=== PATIENT | male | born 1990 | race African-American/Black ===

== ENCOUNTER 2017-01-28 10:34 | Emergency (ER) | payer SELFPAY ==
[~2017-01-28] VITALS: Ht 180.3 cm; Wt 131.5 kg
[~2017-01-28 10:34] MED LIST: HYDR-2762 PO; PANT40GR PO
[2017-01-28] MEDS ORDERED: ONDANSETRON ODT 4 MG TAB.RAPDIS. PO ONE (11:00)
[2017-01-28] MEDS ORDERED: LIDO:MAALOX:DONNATAL 1:1:1 15 ML SINGLE DOSE SWSW ONE (11:00)
--- NOTE | 2017-01-28 11:07 | PHYS DOC ---
Past Medical History Past Medical History: Other Additional Past Medical Histor: Stress Past Surgical History: Other Additional Past Surgical Histo: Right Leg Alcohol Use: Occasionally Drug Use: Cocaine Adult General Chief Complaint Chief Complaint: FLU SYMPTOM HPI HPI Patient is a 26 year old medical presents with multiple complaints. Patient is complaining of a sore throat, productive cough, chronic left upper quadrant pain from chronic stomach issues with nausea and vomiting patient states some of these symptoms are chronic while others have been going on for 5 days. Patient denies any hematemesis or melena. He states he supposed to take Protonix every day for chronic stomach ulcers your. He states he took one tablet today but has missed multiple days. He states he recently came from care home and has not had time to see a GI doctor. Review of Systems Review of Systems Constitutional: Denies fever or chills [] Eyes: Denies change in visual acuity, redness, or eye pain [] HENT: Reports sore throat. Denies nasal congestion or Respiratory: Reports a cough denies shortness of breath [] Cardiovascular: No additional information not addressed in HPI [] GI: chronic LUQ abdominal pain, nausea, vomiting, denies bloody stools or diarrhea [] : Denies dysuria or hematuria [] Musculoskeletal: Denies back pain or joint pain [] Integument: Denies rash or skin lesions [] Neurologic: Denies headache, focal weakness or sensory changes [] All other systems were reviewed and found to be within normal limits, except as documented in this note. Current Medications Current Medications Current Medications Medications (Trade) Dose Ordered Sig/Nahed Start Time Stop Time Status Last Admin Dose Admin Info (Do NOT chart on this entry -- for MONITORING) 1 each PRN DAILY PRN 01/28/17 12:30 01/28/17 14:34 DC Iohexol (Omnipaque 300 Mg/ml) 75 ml 1X ONCE 01/28/17 12:30 01/28/17 12:31 DC 01/28/17 13:13 75 ML Multi-Ingredient Mouthwash/Gargle (Gi Cocktail Single Dose) 15 ml 1X ONCE 01/28/17 11:00 01/28/17 11:01 DC 01/28/17 11:17 15 ML Ondansetron HCl (Zofran Odt) 4 mg 1X ONCE 01/28/17 11:00 01/28/17 11:01 DC 01/28/17 11:17 4 MG Allergies Allergies Allergies Coded Allergies Type Severity Reaction Last Updated Verified No Known Drug Allergies 02/12/13 No Physical Exam Physical Exam Constitutional: Well developed, well nourished, no acute distress, non-toxic appearance. [] HENT: Normocephalic, atraumatic, bilateral external ears normal, oropharynx moist, no oral exudates, nose normal. [] Eyes: PERRLA, EOMI, conjunctiva normal, no discharge. [] Neck: Normal range of motion, no tenderness, supple, no stridor. [] Cardiovascular:Heart rate regular rhythm, no murmur [] Lungs & Thorax: Bilateral breath sounds clear to auscultation [] Abdomen: Bowel sounds normal, soft, no tenderness, no masses, no pulsatile masses. [] Skin: Warm, dry, no erythema, no rash. [] Back: No tenderness, no CVA tenderness. [] Extremities: No tenderness, no cyanosis, no clubbing, ROM intact, no edema. [] Neurologic: Alert and oriented X 3, normal motor function, normal sensory function, no focal deficits noted. [] Psychologic: Affect normal, judgement normal, mood normal. [] Current Patient Data Vital Signs Vital Signs Date Time Temp Pulse Resp B/P (MAP) Pulse Ox O2 Delivery O2 Flow Rate FiO2 01/28/17 13:52 69 142/66 (91) 98 Room Air 01/28/17 10:36 97.7 18 97.7 Lab Values Laboratory Tests Test 01/28/17 10:59 01/28/17 12:40 01/28/17 12:50 Group A Streptococcus Rapid Negative (NEGATIVE) White Blood Count 6.5 x10^3/uL (4.0-11.0) Red Blood Count 4.85 x10^6/uL (4.30-5.70) Hemoglobin 14.9 g/dL (13.0-17.5) Hematocrit 44.3 % (39.0-53.0) Mean Corpuscular Volume 91 fL (79-100) Mean Corpuscular Hemoglobin 31 pg (25-35) Mean Corpuscular Hemoglobin Concent 34 g/dL (31-37) Red Cell Distribution Width 13.1 % (11.5-14.5) Platelet Count 303 x10^3/uL (140-400) Neutrophils (%) (Auto) 45 % (31-73) Lymphocytes (%) (Auto) 41 % (24-48) Monocytes (%) (Auto) 7 % (0-9) Eosinophils (%) (Auto) 7 % (0-3) H Basophils (%) (Auto) 1 % (0-3) Neutrophils # (Auto) 2.9 x10^3uL (1.8-7.7) Lymphocytes # (Auto) 2.7 x10^3/uL (1.0-4.8) Monocytes # (Auto) 0.5 x10^3/uL (0.0-1.1) Eosinophils # (Auto) 0.4 x10^3/uL (0.0-0.7) Basophils # (Auto) 0.0 x10^3/uL (0.0-0.2) Prothrombin Time 14.2 SEC (11.7-14.0) H Prothrombin Time INR 1.2 (0.8-1.1) H PTT 29 SEC (24-38) POC Hemoglobin 15.0 g/dL (14-18) POC Hematocrit 44 % (37-52) POC Sodium 140 mmol/L (135-145) POC Potassium 4.0 mmol/L (3.5-5.0) POC Chloride 104 mmol/L (98-110) POC Total CO2 26 mmol/L (23-32) Anion Gap 14 mmol/L (6-14) POC Blood Urea Nitrogen 10 mg/dL (8-26) POC Creatinine 0.8 mg/dL (0.5-1.4) Glucose Level 86 mg/dL (70-99) POC Ionized Calcium (Rodger) 1.16 mmol/L (1.13-1.32) Laboratory Tests 01/28/17 12:40 Laboratory Tests 01/28/17 12:50 EKG EKG [] Radiology/Procedures Radiology/Procedures []PROCEDURE: CHEST PA & LATERAL 2 views of the Chest 01/28/2017 12:58 PM Indication: cough Comparison: Chest radiograph, December 16, 2012. Findings: Fullness in the subcarinal region, and in the central mediastinum the lateral view. Findings could represent a enlarged lymph node. Whether this contains calcification is uncertain radiographically. No pneumothorax or pleural effusion is seen. No other focal infiltrate is identified. Heart size is normal. Bony thorax is intact. Impression: Fullness in the central mediastinum. Adenopathy or mass cannot excluded. Contrast-enhanced CT of the chest recommended. DICTATED and SIGNED BY: ISMAEL MEEKS MD DATE: 01/28/17 1202 CC: SETH HORVATH APRN; NO PCP ~ CT ANGIOGRAPHY CHEST Clinical Indication: cough and fullness in mediastinum on cxr flulike symptoms Comparison: None. TECHNIQUE: Helical CT imaging of the chest is performed after 75 cc Omnipaque 300 IV contrast using antrum protocol. 3-D MIP reconstructions performed. Findings: Contrast opacification of the pulmonary arteries is not adequate to evaluate for pulmonary embolus. There is no thoracic aortic dissection. The thyroid is symmetric. There is bilateral gynecomastia. No mediastinal or hilar adenopathy. There are subcentimeter hilar lymph nodes. There are calcified left hilar lymph nodes. There is a 2.3 cm calcified subcarinal lymph node. The great vessels are normal in caliber. Cardiac size normal, no pericardial effusion. No pleural abnormality. The central airways are patent. Mild discoid atelectasis in the lingula. Calcified granuloma in the lateral left lower lobe. Mild groundglass opacities in the bilateral lower lobes may be due to small airways disease or atelectasis. Possible fatty infiltration of the liver. No acute bone abnormality. IMPRESSION: 1. No thoracic aortic dissection. 2. Mild groundglass opacities in the bilateral lower lobes may be due to small airways disease or atelectasis. 3. Question fatty infiltration of liver. Electronically signed by: Markell Walter MD (01/28/2017 1:31 PM) [id number] DICTATED and SIGNED BY: MARKELL WALTER MD DATE: 01/28/17 1325 CC: SETH HORVATH APRN; NO PCP ~ Course & Med Decision Making Course & Med Decision Making Pertinent Labs and Imaging studies reviewed. (See chart for details) This is a 26-year-old male patient presenting to the ED today with multiple complaints including a productive cough, chronic left upper quadrant abdominal pain with nausea vomiting from stomach ulcers, sore throat. Negative rapid strep. Chest x-ray interpreted by radiologist was noted for- Fullness in the central mediastinum. Adenopathy or mass cannot excluded. Contrast-enhanced CT of the chest recommended. Labs as well as CT of the chest were ordered. Labs are negative for any acute findings. CTA chest results, no thoracic aortic dissection, Mild ground glass opacities in the bilateral lower lobes may be due to small airways disease or atelectasis questionable fatty infiltration of liver. Patient was discharged with albuterol inhaler, prednisone for 5 days, Tessalon Perles and azithromycin. Patient was asked to also follow-up with a human resource intern provided. Patient was asking for pain medicine for home use. From his previous visit this patient was noted for altering narcotic prescriptions. Reminded patient we will not give him any narcotic prescriptions from our ED for pain he can take Tylenol /Motrin. Dragon Disclaimer Dragon Disclaimer This electronic medical record was generated, in whole or in part, using a voice recognition dictation system. Departure Departure Impression: Primary Impression: Bronchitis Additional Impressions: Upper respiratory disease Abdominal pain Disposition: HOME, SELF-CARE Condition: STABLE Referrals: NON,STAFF (PCP) follow up with your doctor in one week Patient Instructions: Abdominal Pain, Acute Bronchitis, Upper Respiratory Infection, Adult Additional Instructions: You were seen with Bronchitis, upper respiratory infection, chronic abdominal pain from stomach ulcers, viral pharyngitis. Please complete your antibiotics and take the rest of the medications as ordered. Follow-up with your own doctor in 1-[address] shows you have small airway disease, please follow up with the pulmonary doctor provided as soon as you can Scripts Azithromycin (ZITHROMAX) 250 Mg Tablet 1 PKG PO UD, #1 PKG Prov: SETH HORVATH APRN 01/28/17 Benzonatate (TESSALON PERLE) 100 Mg Capsule 1 CAP PO TID, #30 CAP Prov: SETH HORVATH APRN 01/28/17 Albuterol Sulfate (Proair Respiclick) 90 Mcg Aer.pow.ba 1 PUFF IH PRN Q6HRS Y for SHORTNESS OF BREATH, #1 INHALER Prov: SETH HORVATH APRN 01/28/17 Prednisone (PREDNISONE) 50 Mg Tablet 1 TAB PO DAILY, #5 TAB Prov: SETH HORVATH APRN 01/28/17 Problem Qualifiers Additional Impressions: Abdominal pain Abdominal location: left lower quadrant Qualified Codes: R10.32 - Left lower quadrant pain SETH HORVATH APRN Jan 28, 2017 11:07
--- NOTE | 2017-01-28 12:10 | RAD ---
2 views of the Chest 01/28/2017 12:58 PM Indication: cough Comparison: Chest radiograph, December 16, 2012. Findings: Fullness in the subcarinal region, and in the central mediastinum the lateral view. Findings could represent a enlarged lymph node. Whether this contains calcification is uncertain radiographically. No pneumothorax or pleural effusion is seen. No other focal infiltrate is identified. Heart size is normal. Bony thorax is intact. Impression: Fullness in the central mediastinum. Adenopathy or mass cannot excluded. Contrast-enhanced CT of the chest recommended.
[2017-01-28 12:16] LABS: NEGATIVE OBC STREP NEG; POSITIVE OBC STREP POS
[2017-01-28] MEDS ORDERED: IOHEXOL 300 MG/ML 100ML VIAL. IV ONE (12:30)
[2017-01-28] MEDS ORDERED: CONTRAST GIVEN MC PRN (12:30)
[2017-01-28 12:55] LABS: BASO % 1 % (0-3); EOS % 7 % (0-3); HEMATOCRIT 44.3 % (39.0-53.0); HEMOGLOBIN 14.9 g/dL (13.0-17.5); LYMPH # 2.7 x10^3/uL (1.0-4.8); LYMPH % 41 % (24-48); MEAN CORPUSCULAR HEMOGLOBIN 31 pg (25-35); MEAN CORPUSCULAR HGB CONC 34 g/dL (31-37); MEAN CORPUSCULAR VOLUME 91 fL (79-100); MONO % 7 % (0-9); NEUT % 45 % (31-73); PLATELET COUNT 303 x10^3/uL (140-400); RED BLOOD COUNT 4.85 x10^6/uL (4.30-5.70); RED CELL DISTRIBUTION WIDTH 13.1 % (11.5-14.5); WHITE BLOOD COUNT 6.5 x10^3/uL (4.0-11.0)
[2017-01-28 13:09] LABS: INR 1.2 (0.8-1.1); PROTHROMBIN TIME PATIENT 14.2 SEC (11.7-14.0)
--- NOTE | 2017-01-28 13:35 | RAD ---
PQRS Compliance Statement: One or more of the following individualized dose reduction techniques were utilized for this examination: 1. Automated exposure control 2. Adjustment of the mA and/or kV according to patient size 3. Use of iterative reconstruction technique CT ANGIOGRAPHY CHEST Clinical Indication: cough and fullness in mediastinum on cxr flulike symptoms Comparison: None. TECHNIQUE: Helical CT imaging of the chest is performed after 75 cc Omnipaque 300 IV contrast using antrum protocol. 3-D MIP reconstructions performed. Findings: Contrast opacification of the pulmonary arteries is not adequate to evaluate for pulmonary embolus. There is no thoracic aortic dissection. The thyroid is symmetric. There is bilateral gynecomastia. No mediastinal or hilar adenopathy. There are subcentimeter hilar lymph nodes. There are calcified left hilar lymph nodes. There is a 2.3 cm calcified subcarinal lymph node. The great vessels are normal in caliber. Cardiac size normal, no pericardial effusion. No pleural abnormality. The central airways are patent. Mild discoid atelectasis in the lingula. Calcified granuloma in the lateral left lower lobe. Mild groundglass opacities in the bilateral lower lobes may be due to small airways disease or atelectasis. Possible fatty infiltration of the liver. No acute bone abnormality. IMPRESSION: 1. No thoracic aortic dissection. 2. Mild groundglass opacities in the bilateral lower lobes may be due to small airways disease or atelectasis. 3. Question fatty infiltration of liver. Electronically signed by: Markell De Leon MD (01/28/2017 1:31 PM) [id number]
[2017-01-28 13:52] VITALS: BP 142/66
[2017-01-28] MEDS ORDERED: PROAIR RESPICL90 MCG IH (14:20)
[2017-01-28] MEDS ORDERED: AZIT250T PO (14:20)
[2017-01-28] MEDS ORDERED: BENZ100C PO (14:20)
[2017-01-28] MEDS ORDERED: PRED50TA PO (14:20)
== END 2017-01-28 14:29 | disposition home or self-care (01) ==
LOC: ER 10:34
DX: J40 Bronchitis, not specified as acute or chronic (principal); J39.9 Disease of upper respiratory tract, unspecified; R10.12 Left upper quadrant pain; R10.32 Left lower quadrant pain
CPT/HCPCS: 36415; 71020; 71275; 80047; 85025; 85610; 85730; 87070; 87880; 99285; Q0162; Q9967

== ENCOUNTER 2017-02-04 15:53 | Emergency (ER) | payer SELFPAY ==
[~2017-02-04] VITALS: Ht 180.3 cm; Wt 131.5 kg
[~2017-02-04 15:53] MED LIST changes: +AZIT250T PO; +BENZ100C PO; +PRED50TA PO; +PROAIR RESPICL90 MCG IH
[2017-02-04] MEDS ORDERED: NITROGLYCERIN SUBLINGUAL 0.4 MG BOTTLE OF 25. SL PRN (16:45)
[2017-02-04 16:57] LABS: BASO # 0.1 x10^3/uL (0.0-0.2); BASO % 1 % (0-3); EOS % 7 % (0-3); HEMATOCRIT 42.4 % (39.0-53.0); HEMOGLOBIN 14.5 g/dL (13.0-17.5); LYMPH % 42 % (24-48); MEAN CORPUSCULAR HEMOGLOBIN 31 pg (25-35); MEAN CORPUSCULAR HGB CONC 34 g/dL (31-37); MEAN CORPUSCULAR VOLUME 92 fL (79-100); MONO % 7 % (0-9); NEUT % 43 % (31-73); PLATELET COUNT 313 x10^3/uL (140-400); RED BLOOD COUNT 4.64 x10^6/uL (4.30-5.70); RED CELL DISTRIBUTION WIDTH 12.8 % (11.5-14.5); WHITE BLOOD COUNT 7.1 x10^3/uL (4.0-11.0)
[2017-02-04 17:05] LABS: CALCIUM 9.2 mg/dL (8.5-10.1); CREATININE 0.7 mg/dL (0.7-1.3); GFR 162.5; POTASSIUM 4.1 mmol/L (3.5-5.1)
--- NOTE | 2017-02-04 17:06 | RAD ---
Chest, 2 views, 02/04/2017: History: Chest pain Comparison is made to a study from 01/28/2017. The heart size and pulmonary vascularity are normal. No pulmonary infiltrates are seen. There is a calcified granuloma in the left lower lobe. There is no evidence of pleural fluid. IMPRESSION: No acute cardiopulmonary abnormality is detected.
[2017-02-04 17:11] LABS: ALBUMIN 3.7 g/dL (3.4-5.0); TOTAL BILIRUBIN 0.4 mg/dL (0.2-1.0); TOTAL PROTEIN 7.4 g/dL (6.4-8.2)
[2017-02-04 17:36] LABS: BARBITURATES NEG (NEG); BENZODIAZEPINES POS (NEG); CANNABINOIDS NEG (NEG); COCAINE POS (NEG); METHADONE NEG (NEG); OPIATES POS (NEG); PHENCYCLIDINE NEG (NEG)
[2017-02-04] MEDS ORDERED: CONTRAST GIVEN MC PRN (18:15)
[2017-02-04] MEDS ORDERED: IOHEXOL 300 MG/ML 100ML VIAL. IV ONE (18:30)
--- NOTE | 2017-02-04 18:50 | RAD ---
CTA Chest with contrast: Clinical History: CP AND HTN SINCE 15:15 POS FOR COCAINE, OPOID, AND BENZO USE. INJ 75ML OMNI 300 PREV SENT H/O STOMACH ULCERS GERD R/O POSSIBLE DISSECTION . Axial helical images of the chest were obtained after the administration of 75 cc of IV Omni 300 and timed appropriately for a pulmonary arterial study. Conventional axial reconstruction was performed in addition to coronal, sagittal and bilateral oblique MIP (maximum intensity projection). This study was ordered to exclude possible aortic dissection. There are no filling defects to suggest pulmonary embolism. The more peripheral subsegmental pulmonary arteries are not well opacified limiting our sensitivity for small peripheral pulmonary emboli. The lungs and pleural margins are clear. There is no mediastinal or hilar lymphadenopathy. The thoracic aorta appears normal. Bilateral gynecomastia is likely incidental. Impression: 1. No evidence of pulmonary embolism. 2. Normal thoracic aorta. PQRS Compliance Statement: One or more of the following individualized dose reduction techniques were utilized for this examination: 1. Automated exposure control 2. Adjustment of the mA and/or kV according to patient size 3. Use of iterative reconstruction technique Electronically signed by: Delmer Bowman III, MD (02/04/2017 6:47 PM) [facility]
[2017-02-04] MEDS ORDERED: hydroCHLOROthiazide 12.5 MG CAPSULE PO ONE (19:45)
[2017-02-04] MEDS ORDERED: NAPROXEN 500 MG TABLET PO ONE (19:45)
[2017-02-04 19:56] VITALS: BP 140/100
[2017-02-04] MEDS ORDERED: HYDR12.53 PO (20:20)
--- NOTE | 2017-02-04 21:12 | ED.ADGEN ---
Past Medical History Past Medical History: Bronchitis, GERD, Hypertension, Pneumonia Additional Past Medical Histor: LUNG DISEASE; Stress, STOMACH ULCERS, COLITIS. Past Surgical History: Other Additional Past Surgical Histo: R LEG FX REPAIR Alcohol Use: None Drug Use: Cocaine Adult General Chief Complaint Chief Complaint: CHEST PAIN HPI HPI Patient is a 26 year old man, history of GERD, hypertension, who states he's been out of his medications for the past month after being incarcerated, and does not currently have a primary care provider, who presents emergency Department with complaint of left chest pain. Patient states he first noted the pain several hours ago, he states that he was using cocaine this morning, but "just a little bit", denies any other ingestions or exposures. Patient's heart rate is in the 70s and 80s, blood pressure noted to be 150s over 80s, he denies any injuries or other ingestions, states the pain begins in the anterior portion of his left chest, does radiate to his shoulder into his back and also slightly to the neck. He denies any similar symptoms previously, any injuries, any coughing, states he is very mild shortness of breath, denies a inciting factors. Has been eating and drinking normally, denies any swelling extremities , history of DVT or PE, no family history of heart disease or issues in young people. Review of Systems Review of Systems Constitutional: Denies fever or chills. [] Eyes: Denies change in visual acuity. [] HENT: Denies nasal congestion or sore throat. [] Respiratory: Denies cough or shortness of breath. [] Cardiovascular: Patient complaining of left-sided chest pain radiating into the back. GI: Denies abdominal pain, nausea, vomiting, bloody stools or diarrhea. [] : Denies dysuria. [] Musculoskeletal: Denies back pain or joint pain. [] Integument: Denies rash. [] Neurologic: Denies headache, focal weakness or sensory changes. [] Endocrine: Denies polyuria or polydipsia. [] Lymphatic: Denies swollen glands. [] Psychiatric: Denies depression or anxiety. [] Current Medications Current Medications Current Medications Medications (Trade) Dose Ordered Sig/Nahed Start Time Stop Time Status Last Admin Dose Admin Hydrochlorothiazide (Microzide) 12.5 mg 1X ONCE 02/04/17 19:45 02/04/17 19:46 DC 02/04/17 19:38 12.5 MG Info (Do NOT chart on this entry -- for MONITORING) 1 each PRN DAILY PRN 02/04/17 18:15 02/04/17 20:27 DC Iohexol (Omnipaque 300 Mg/ml) 75 ml 1X ONCE 02/04/17 18:30 02/04/17 18:31 DC 02/04/17 18:18 75 ML Lorazepam (Ativan) 0.5 mg 1X ONCE 02/04/17 16:45 02/04/17 16:46 DC Naproxen (Naprosyn) 500 mg 1X ONCE 02/04/17 19:45 02/04/17 19:46 DC 02/04/17 19:39 500 MG Nitroglycerin (Nitrostat) 0.4 mg PRN Q5MIN PRN 02/04/17 16:45 02/04/17 20:27 DC 02/04/17 17:54 0.4 MG Allergies Allergies Allergies Coded Allergies Type Severity Reaction Last Updated Verified No Known Drug Allergies 02/12/13 No Physical Exam Physical Exam Constitutional: Well developed, well nourished, no acute distress, non-toxic appearance. [] HENT: Normocephalic, atraumatic, bilateral external ears normal, oropharynx moist, no oral exudates, nose normal. [] Eyes: PERRLA, EOMI, conjunctiva normal, no discharge. [] Neck: Normal range of motion, no tenderness, supple, no stridor. [] Cardiovascular:Heart rate regular rhythm, no murmur him S1, S2, no rubs or gallops. Patient with left anterior chest wall pain, mild tenderness palpation, reproducible. No crepitus. Lungs & Thorax: Bilateral breath sounds clear to auscultation, no wheezing, rhonchi, rales. No posterior chest wall tenderness. [] Abdomen: Bowel sounds normal, soft, no tenderness, no masses, no pulsatile masses. [] Skin: Warm, dry, no erythema, no rash. [] Back: No tenderness, no CVA tenderness. [] Extremities: No tenderness, no cyanosis, no clubbing, ROM intact, no edema. Negative Homans sign. [] Neurologic: Alert and oriented X 3, normal motor function, normal sensory function, no focal deficits noted. [] Psychologic: Affect normal, judgement normal, mood normal. [] Current Patient Data Vital Signs Vital Signs Date Time Temp Pulse Resp B/P (MAP) Pulse Ox O2 Delivery O2 Flow Rate FiO2 02/04/17 19:56 91 15 140/100 (113) 98 Room Air 02/04/17 15:57 98.0 98.0 Lab Values Laboratory Tests Test 02/04/17 16:45 02/04/17 17:15 02/04/17 19:25 White Blood Count 7.1 x10^3/uL (4.0-11.0) Red Blood Count 4.64 x10^6/uL (4.30-5.70) Hemoglobin 14.5 g/dL (13.0-17.5) Hematocrit 42.4 % (39.0-53.0) Mean Corpuscular Volume 92 fL (79-100) Mean Corpuscular Hemoglobin 31 pg (25-35) Mean Corpuscular Hemoglobin Concent 34 g/dL (31-37) Red Cell Distribution Width 12.8 % (11.5-14.5) Platelet Count 313 x10^3/uL (140-400) Neutrophils (%) (Auto) 43 % (31-73) Lymphocytes (%) (Auto) 42 % (24-48) Monocytes (%) (Auto) 7 % (0-9) Eosinophils (%) (Auto) 7 % (0-3) H Basophils (%) (Auto) 1 % (0-3) Neutrophils # (Auto) 3.0 x10^3uL (1.8-7.7) Lymphocytes # (Auto) 3.0 x10^3/uL (1.0-4.8) Monocytes # (Auto) 0.5 x10^3/uL (0.0-1.1) Eosinophils # (Auto) 0.5 x10^3/uL (0.0-0.7) Basophils # (Auto) 0.1 x10^3/uL (0.0-0.2) Sodium Level 139 mmol/L (136-145) Potassium Level 4.1 mmol/L (3.5-5.1) Chloride Level 102 mmol/L (98-107) Carbon Dioxide Level 30 mmol/L (21-32) Anion Gap 7 (6-14) Blood Urea Nitrogen 10 mg/dL (8-26) Creatinine 0.7 mg/dL (0.7-1.3) Estimated GFR (Cockcroft-Gault) 162.5 BUN/Creatinine Ratio 14 (6-20) Glucose Level 94 mg/dL (70-99) Calcium Level 9.2 mg/dL (8.5-10.1) Total Bilirubin 0.4 mg/dL (0.2-1.0) Aspartate Amino Transferase (AST) 28 U/L (15-37) Alanine Aminotransferase (ALT) 35 U/L (16-63) Alkaline Phosphatase 73 U/L (46-116) Troponin I Quantitative < 0.017 ng/mL (0.000-0.055) < 0.017 ng/mL (0.000-0.055) CK-Oyz-K-Type Natriuretic Peptide 6 pg/mL (0-124) Total Protein 7.4 g/dL (6.4-8.2) Albumin 3.7 g/dL (3.4-5.0) Albumin/Globulin Ratio 1.0 (1.0-1.7) Lipase 62 U/L (73-393) L Urine Opiates Screen Pos (NEG) Urine Methadone Screen Neg (NEG) Urine Barbiturates Neg (NEG) Urine Phencyclidine Screen Neg (NEG) Urine Amphetamine/Methamphetamine Neg (NEG) Urine Benzodiazepines Screen Pos (NEG) Urine Cocaine Screen Pos (NEG) Urine Cannabinoids Screen Neg (NEG) Urine Ethyl Alcohol Neg (NEG) Laboratory Tests 02/04/17 16:45 Laboratory Tests 02/04/17 16:45 EKG EKG EC: Sinus rhythm, heart rate 88 bpm, equivocal axis, QTC of 422, CA 158, QRS of 104, patient with contour normality is noted in the anterior lateral leads, with incomplete right bundle-branch block noted, abnormal ECG, does not meet STEMI criteria. Patient states that his pain is a 3 out of 10 currently. EC: Sinus rhythm, heart rate 75 beats are minute, equivocal axis, QTC of 407, CA 152, QRS of 102, patient with incomplete right bundle-branch block again noted, abnormal ECG, does not meet STEMI criteria. As interpreted by me. Radiology/Procedures Radiology/Procedures [][facility] [address] [place] [address] IMAGING REPORT Signed PATIENT: SARITHA HOLCOMB ACCOUNT: [id number] : 1990 LOCATION: ER AGE: 26 SEX: M EXAM STATUS: REG ER ORD. PHYSICIAN: ARLINE BANKS DO REASON: CP PROCEDURE: CHEST PA & LATERAL Chest, 2 views, 02/04/2017: History: Chest pain Comparison is made to a study from 01/28/2017. The heart size and pulmonary vascularity are normal. No pulmonary infiltrates are seen. There is a calcified granuloma in the left lower lobe. There is no evidence of pleural fluid. IMPRESSION: No acute cardiopulmonary abnormality is detected. DICTATED and SIGNED BY: STEPHAN RENDON MD DATE: 02/04/17 1700 CC: ARLINE BANKS DO; NO PCP ~ Impressions: [facility] [address] [place], [place] [id number] IMAGING REPORT Signed PATIENT: SARITHA HOLCOMB ACCOUNT: [id number] : 1990 LOCATION: ER AGE: 26 SEX: M EXAM STATUS: REG ER ORD. PHYSICIAN: ARLINE BANKS DO REASON: Chest pain/HTN/cocaine use PROCEDURE: CT ANGIOGRAPHY CHEST CTA Chest with contrast: Clinical History: CP AND HTN SINCE 15:15 POS FOR COCAINE, OPOID, AND BENZO USE. INJ 75ML OMNI 300 PREV SENT H/O STOMACH ULCERS GERD R/O POSSIBLE DISSECTION . Axial helical images of the chest were obtained after the administration of 75 cc of IV Omni 300 and timed appropriately for a pulmonary arterial study. Conventional axial reconstruction was performed in addition to coronal, sagittal and bilateral oblique MIP (maximum intensity projection). This study was ordered to exclude possible aortic dissection. There are no filling defects to suggest pulmonary embolism. The more peripheral subsegmental pulmonary arteries are not well opacified limiting our sensitivity for small peripheral pulmonary emboli. The lungs and pleural margins are clear. There is no mediastinal or hilar lymphadenopathy. The thoracic aorta appears normal. Bilateral gynecomastia is likely incidental. Impression: 1. No evidence of pulmonary embolism. 2. Normal thoracic aorta. PQRS Compliance Statement: One or more of the following individualized dose reduction techniques were utilized for this examination: 1. Automated exposure control 2. Adjustment of the mA and/or kV according to patient size 3. Use of iterative reconstruction technique Electronically signed by: Marilynn Smith III, MD (02/04/2017 6:47 PM) [facility] DICTATED and SIGNED BY: MARILYNN SMITH III, MD DATE: 02/04/17 1840 CC: ARLINE BANKS DO; NO PCP ~ Course & Med Decision Making Course & Med Decision Making Pertinent Labs and Imaging studies reviewed. (See chart for details) Due to patient's complaints, and recent use of cocaine, ECG was obtained, along with chest x-ray, laboratory studies. 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 Chest x-ray was unremarkable, however based on patient's complaints of radiating pain, and recent cocaine use, CTA of the chest was ordered to evaluate for dissection. I was contacted by the quality assurance qa lab technician, informed that the patient had a CT study performed on the of this month, at that time noted for PE which was negative. As the patient has concerning symptoms, and history with recent cocaine use, after discussion will proceed with CT of the chest. Past CT was obtained did not reveal evidence of concerning findings. Patient had a 3 hour troponin and repeat ECG performed both of which not reveal any concerning findings. I did discuss all this with the patient, who continues to rest comfortably with stable vital signs. He states he is still experiencing some discomfort in his chest it is reasonable as stated, as stated there is no evidence his cardiac or pulmonary in nature which I discussed with the patient along with HEART Score 2. Patient received Hydrochlorothiazide 25 mg in the ED, as he stated that he has run out of his blood pressure medication and is noted to have blood pressures 150s over 80s in the ED, and does not currently have his previous prescriptions or a provider. I did instruct the patient to contact Dr. Aguillon or a provider from the list given to him at discharge to establish general medical care, or to follow up with the clinics provided him in the ED, he was given a 15 day prescription for her hydrochlorothiazide. Patient tolerated medication the ED without issue. He is agreeable with plan to be discharged home, to return for concerning symptoms, and to follow-up as described. Patient discharged home in stable condition with plan and precautions as above. Dragon Disclaimer Dragon Disclaimer This electronic medical record was generated, in whole or in part, using a voice recognition dictation system. Departure Impression: Primary Impression: Chest pain Disposition: HOME, SELF-CARE Condition: IMPROVED Scripts Hydrochlorothiazide (HYDROCHLOROTHIAZIDE CAPSULE ) 12.5 Mg Capsule 1 CAP PO DAILY, #15 CAP 0 Refills Prov: ARLINE BANKS DO 02/04/17 ARLINE BANKS DO Feb 04, 2017 21:12
--- NOTE | 2017-02-05 07:00 | EKG ---
[facility] [address] [place] [address] Test Date: 2017-02-04 Test Time: 19:24:32 Pat Name: SARITHA HOLCOMB Department: Room: Gender: M Date Puller: : 1990 Requested By: ARLINE BANKS Order Number: [id number] Reading MD: Jarek Stuart Measurements Intervals [place] Rate: 75 P: 0 HI: 162 QRS: 64 QRSD: 102 T: 13 QT: 362 QTc: 407 Interpretive Statements SINUS RHYTHM INCOMPLETE RIGHT BUNDLE BRANCH BLOCK NO SPECIFIC ECG ABNORMALITIES Electronically Signed On 02-09-2017 16:47:15 [employer] by Jarek Stuart
== END 2017-02-04 20:23 | disposition home or self-care (01) ==
LOC: ER 15:53
DX: R07.89 Other chest pain (principal); R06.02 Shortness of breath; K21.9 Gastro-esophageal reflux disease without esophagitis; I10 Essential (primary) hypertension; F14.10 Cocaine abuse, uncomplicated; Z87.01 Personal history of pneumonia (recurrent)
CPT/HCPCS: 36415; 71020; 71275; 80053; 80307; 83690; 83880; 84484; 85025; 93005; 99285; Q9967; G0479

== ENCOUNTER 2017-07-29 02:48 | Emergency (ER) | payer SELFPAY ==
[2017-07-29 03:31] LABS: ADD MAN DIFF? NO
[2017-07-29 03:34] LABS: BASO % 1 % (0-3); EOS # 0.3 x10^3/uL (0.0-0.7); EOS % 5 % (0-3); HEMATOCRIT 40.3 % (39.0-53.0); HEMOGLOBIN 14.3 g/dL (13.0-17.5); LYMPH % 50 % (24-48); MEAN CORPUSCULAR HEMOGLOBIN 32 pg (25-35); MEAN CORPUSCULAR HGB CONC 35 g/dL (31-37); MEAN CORPUSCULAR VOLUME 91 fL (79-100); MONO # 0.4 x10^3/uL (0.0-1.1); MONO % 7 % (0-9); NEUT # 2.2 x10^3uL (1.8-7.7); NEUT % 37 % (31-73); PLATELET COUNT 326 x10^3/uL (140-400); RED BLOOD COUNT 4.46 x10^6/uL (4.30-5.70); RED CELL DISTRIBUTION WIDTH 13.6 % (11.5-14.5); WHITE BLOOD COUNT 5.9 x10^3/uL (4.0-11.0)
[2017-07-29] MEDS: ACETAMINOPHEN 500 MG TABLET PO (03:42)
[2017-07-29 03:44] LABS: ANION GAP 7 (6-14); BLOOD UREA NITROGEN 8 mg/dL (8-26); BUN/CREATININE RATIO 9 (6-20); CALCIUM 9.1 mg/dL (8.5-10.1); CARBON DIOXIDE 30 mmol/L (21-32); CHLORIDE 103 mmol/L (98-107); CREATININE 0.9 mg/dL (0.7-1.3); GFR 120.7; GLUCOSE 99 mg/dL (70-99); POTASSIUM 3.4 mmol/L (3.5-5.1); SODIUM 140 mmol/L (136-145)
[2017-07-29 03:50] LABS: ALBUMIN 3.6 g/dL (3.4-5.0); ALBUMIN/GLOBULIN RATIO 0.8 (1.0-1.7); ALK PHOS 76 U/L (46-116); ALT (SGPT) 21 U/L (16-63); AST (SGOT) 15 U/L (15-37); TOTAL BILIRUBIN 0.2 mg/dL (0.2-1.0); TOTAL PROTEIN 7.9 g/dL (6.4-8.2)
[2017-07-29 03:52] LABS: TROPONINI < 0.017 ng/mL (0.000-0.055)
[2017-07-29] MEDS: HYDROcodone/APAP 5/325MG 1 TAB TABLET PO ×3 (04:40→04:45)
== END 2017-07-29 04:37 | disposition home or self-care (01) ==
LOC: ER 02:48
DX: R07.9 Chest pain, unspecified (principal); R20.0 Anesthesia of skin; R05 Cough; R51 Headache; K21.9 Gastro-esophageal reflux disease without esophagitis; I10 Essential (primary) hypertension; M79.89 Other specified soft tissue disorders; F14.10 Cocaine abuse, uncomplicated
CPT/HCPCS: 36415; 71045; 80053; 84484; 85025; 93005; 93971; 99285

== ENCOUNTER 2017-11-05 02:05 | Emergency (ER) | payer SELFPAY ==
[~2017-11-05] VITALS: Ht 182.9 cm; Wt 88.5 kg
[~2017-11-05 02:05] MED LIST changes: +HYDR12.53 PO
[2017-11-05 02:08] VITALS: BP 129/95
[2017-11-05] MEDS ORDERED: IV NORMAL SALINE 1000ML BAG 1,000 ML IV SCH (02:15)
[2017-11-05] MEDS ORDERED: ONDANSETRON PF 4 MG/2 ML VIAL. IV ONE (02:15)
--- NOTE | 2017-11-05 02:22 | PHYS DOC ---
Past Medical History Past Medical History: Bronchitis, GERD, Hypertension, Pneumonia Additional Past Medical Histor: LUNG DISEASE; Stress, STOMACH ULCERS, COLITIS. Past Surgical History: Other Additional Past Surgical Histo: R LEG FX REPAIR Smoking: Cigarettes, 1 Pack Per Day Alcohol Use: None Drug Use: Cocaine (reports past use), Marijuana (has not smoked in the last week) Adult General Chief Complaint Chief Complaint: SHORTNESS OF BREATH HPI HPI Patient is a 27 year-old male who presents to the emergency department for evaluation. He states he has felt poorly for the past few days, and then well at work today, he began having the sudden onset of vomiting. He reports feeling some shortness of breath as well, and is diaphoretic and tachypneic when he presents to the emergency department. He denies any definite focal pain. He appears very anxious. He denies any pleuritic chest pain. He is noted to be tachycardic. His oxygen saturation on room air is normal. There are no alleviating or exacerbating factors to his symptoms. He states he has a past history of cocaine use, but has not used in a while. He states that he last smoked marijuana about a week ago and does not smoke regularly. He does not check alcohol regularly. Review of Systems Review of Systems Constitutional: Denies fever or chills [] Eyes: Denies change in visual acuity, redness, or eye pain [] HENT: Denies nasal congestion or sore throat [] Respiratory: Denies cough. Reports shortness of breath [] Cardiovascular: Denies any chest pain or pleuritic pain.[] GI: Denies abdominal pain, bloody emesis bloody stools or diarrhea [] : Denies dysuria or hematuria [] Musculoskeletal: Denies back pain or joint pain [] Integument: Denies rash or skin lesions [] Neurologic: Denies headache, focal weakness. Does report paresthesias in his hands bilaterally. [] Endocrine: Denies polyuria or polydipsia [] All other systems were reviewed and found to be within normal limits, except as documented in this note. Current Medications Current Medications Current Medications Medications (Trade) Dose Ordered Sig/Nahed Start Time Stop Time Status Last Admin Dose Admin Lorazepam (Ativan) 1 mg 1X ONCE 11/05/17 02:30 11/05/17 03:19 DC 11/05/17 03:15 1 MG Ondansetron HCl (Zofran) 4 mg 1X ONCE 11/05/17 02:15 11/05/17 03:19 DC 11/05/17 03:15 4 MG Sodium Chloride 1,000 ml @ 1,000 mls/hr Q1H 11/05/17 02:15 11/05/17 03:19 DC 11/05/17 03:15 1,000 MLS/HR Allergies Allergies Allergies Coded Allergies Type Severity Reaction Last Updated Verified No Known Drug Allergies 02/12/13 No Physical Exam Physical Exam PHYSICAL EXAM: CONSTITUTIONAL: Well developed, well nourished HEAD: normocephalic, atraumatic EENT: PERRL, EOMI. Conjunctivae normal color, sclerae non-icteric; moist mucous membranes. NECK: Supple, non-tender; no meningismus. LUNGS: Lungs CTA, the patient is hyperventilating. Normal air movement. HEART: Regular tachycardia rhythm, no murmur CHEST: No deformity; non-tender ABDOMEN: The abdomen is soft, and non-tender, no masses or bruits. EXTREM: Normal ROM; no deformity, no calf tenderness. Normal pulses palpable in all extremities. There is no pedal edema. SKIN: No rash; the patient is diaphoretic. NEURO: Alert; normal speech and cognition; CN's grossly intact; strength grossly intact without focal deficit. BACK: No CVA TTP. PSYCHIATRIC: The patient appears very anxious, with mild agitation, although nonaggressive. Current Patient Data Vital Signs Vital Signs Date Time Temp Pulse Resp B/P (MAP) Pulse Ox O2 Delivery O2 Flow Rate FiO2 11/05/17 02:08 98.7 125 26 129/95 (106) 95 Room Air 98.7 Lab Values Laboratory Tests Test 11/05/17 02:25 11/05/17 02:30 11/05/17 03:20 O2 Saturation 91 % (92-99) L Arterial Blood pH 7.40 (7.35-7.45) Arterial Blood pCO2 at Patient Temp 42 mmHg (35-46) Arterial Blood pO2 at Patient Temp 61 mmHg (85-108) L Arterial Blood HCO3 25 mmol/L (21-28) Arterial Blood Base Excess 0 mmol/L (-3-3) FiO2 21 White Blood Count 8.3 x10^3/uL (4.0-11.0) Red Blood Count 4.81 x10^6/uL (4.30-5.70) Hemoglobin 14.9 g/dL (13.0-17.5) Hematocrit 42.9 % (39.0-53.0) Mean Corpuscular Volume 89 fL (79-100) Mean Corpuscular Hemoglobin 31 pg (25-35) Mean Corpuscular Hemoglobin Concent 35 g/dL (31-37) Red Cell Distribution Width 13.2 % (11.5-14.5) Platelet Count 309 x10^3/uL (140-400) Neutrophils (%) (Auto) 47 % (31-73) Lymphocytes (%) (Auto) 40 % (24-48) Monocytes (%) (Auto) 9 % (0-9) Eosinophils (%) (Auto) 3 % (0-3) Basophils (%) (Auto) 1 % (0-3) Neutrophils # (Auto) 3.9 x10^3uL (1.8-7.7) Lymphocytes # (Auto) 3.3 x10^3/uL (1.0-4.8) Monocytes # (Auto) 0.8 x10^3/uL (0.0-1.1) Eosinophils # (Auto) 0.3 x10^3/uL (0.0-0.7) Basophils # (Auto) 0.0 x10^3/uL (0.0-0.2) D-Dimer ([place]) < 0.27 ug/mlFEU Sodium Level 139 mmol/L (136-145) Potassium Level 3.9 mmol/L (3.5-5.1) Chloride Level 104 mmol/L (98-107) Carbon Dioxide Level 30 mmol/L (21-32) Anion Gap 5 (6-14) L Blood Urea Nitrogen 7 mg/dL (8-26) L Creatinine 1.0 mg/dL (0.7-1.3) Estimated GFR (Cockcroft-Gault) 106.9 BUN/Creatinine Ratio 7 (6-20) Glucose Level 131 mg/dL (70-99) H Calcium Level 9.9 mg/dL (8.5-10.1) Magnesium Level 1.9 mg/dL (1.8-2.4) Total Bilirubin 0.5 mg/dL (0.2-1.0) Aspartate Amino Transferase (AST) 24 U/L (15-37) Alanine Aminotransferase (ALT) 23 U/L (16-63) Alkaline Phosphatase 76 U/L (46-116) Creatine Kinase 494 U/L (39-308) H Creatine Kinase MB (Mass) 5.0 ng/mL (0.0-3.6) H Creatine Kinase MB Relative Index 1.0 % (0-4) Troponin I Quantitative < 0.017 ng/mL (0.000-0.055) YG-Qcl-A-Type Natriuretic Peptide 9 pg/mL (0-124) Total Protein 8.0 g/dL (6.4-8.2) Albumin 4.0 g/dL (3.4-5.0) Albumin/Globulin Ratio 1.0 (1.0-1.7) Lipase 55 U/L (73-393) L Urine Collection Type Unknown Urine Color Yellow Urine Clarity Clear Urine pH 8.0 Urine Specific [place] >=1.030 Urine Protein 100 mg/dL (NEG-TRACE) Urine Glucose (UA) Negative mg/dL (NEG) Urine Ketones (Stick) Negative mg/dL (NEG) Urine Blood Moderate (NEG) Urine Nitrite Negative (NEG) Urine Bilirubin Negative (NEG) Urine Urobilinogen Dipstick 1.0 mg/dL (0.2 mg/dL) Urine Leukocyte Esterase Trace (NEG) Urine RBC Tntc /HPF (0-2) Urine WBC 5-10 /HPF (0-4) Urine Squamous Epithelial Cells Few /LPF Urine Bacteria Few /HPF (0-FEW) Urine Hyaline Casts Many /HPF Urine Granular Casts Few /HPF Urine Mucus Marked /LPF Urine Opiates Screen Pos (NEG) Urine Methadone Screen Neg (NEG) Urine Barbiturates Neg (NEG) Urine Phencyclidine Screen Neg (NEG) Urine Amphetamine/Methamphetamine Pos (NEG) Urine Benzodiazepines Screen Neg (NEG) Urine Cocaine Screen Pos (NEG) Urine Cannabinoids Screen Pos (NEG) Urine Ethyl Alcohol Neg (NEG) Laboratory Tests 11/05/17 02:30 Laboratory Tests 11/05/17 02:30 EKG EKG [Normal sinus rhythm at a rate of 104 beats for minute, normal axis, incomplete right bundle branch block pattern, there are no acute ischemic ST/T changes.] The patient's EKG is unchanged compared to his prior EKGs. Radiology/Procedures Radiology/Procedures [ER physician preliminary chest x-ray interpretation: No acute disease.] Course & Med Decision Making Course & Med Decision Making Pertinent available Labs and Imaging studies reviewed. (See chart for details) [3:30 AM: The patient decided to sign out AGAINST MEDICAL ADVICE. An extensive discussion with the patient about the uncertain etiology of his symptoms and encouraged him to stay for completion of his evaluation but he refused. Patient' s demeanor and presentation are suggestive of intoxication with some stimulant.. ] Dragon Disclaimer Dragon Disclaimer This electronic medical record was generated, in whole or in part, using a voice recognition dictation system. Departure Departure Impression: Primary Impression: Dyspnea Additional Impressions: Paresthesias Substance abuse Disposition: 07 AGAINST MEDICAL ADVICE Condition: STABLE Referrals: NO PCP (PCP) Problem Qualifiers LOU HUITRON MD Nov 05, 2017 02:22
[2017-11-05 03:04] LABS: BASO % 1 % (0-3); EOS # 0.3 x10^3/uL (0.0-0.7); EOS % 3 % (0-3); HEMATOCRIT 42.9 % (39.0-53.0); HEMOGLOBIN 14.9 g/dL (13.0-17.5); LYMPH # 3.3 x10^3/uL (1.0-4.8); LYMPH % 40 % (24-48); MEAN CORPUSCULAR HEMOGLOBIN 31 pg (25-35); MEAN CORPUSCULAR HGB CONC 35 g/dL (31-37); MEAN CORPUSCULAR VOLUME 89 fL (79-100); MONO # 0.8 x10^3/uL (0.0-1.1); MONO % 9 % (0-9); NEUT # 3.9 x10^3uL (1.8-7.7); NEUT % 47 % (31-73); PLATELET COUNT 309 x10^3/uL (140-400); RED BLOOD COUNT 4.81 x10^6/uL (4.30-5.70); RED CELL DISTRIBUTION WIDTH 13.2 % (11.5-14.5); WHITE BLOOD COUNT 8.3 x10^3/uL (4.0-11.0)
[2017-11-05 03:17] LABS: BASE EXCESS ABG 0 mmol/L (-3-3); HCO3 ABG 25 mmol/L (21-28); PCO2 ABG 42 mmHg (35-46); PO2 ABG 61 mmHg (85-108); SAT O2 ABG 91 % (92-99)
[2017-11-05 03:18] LABS: FIO2 ABG 21
[2017-11-05 03:21] LABS: CALCIUM 9.9 mg/dL (8.5-10.1); GFR 106.9; POTASSIUM 3.9 mmol/L (3.5-5.1)
[2017-11-05 03:29] LABS: MAGNESIUM 1.9 mg/dL (1.8-2.4); TOTAL BILIRUBIN 0.5 mg/dL (0.2-1.0)
--- NOTE | 2017-11-05 03:32 | RAD ---
PORTABLE CHEST 1V Clinical Indication: SHORTNESS OF BREATH Comparison: AP chest July 29, 2017. Findings: The cardiomediastinal silhouette is normal. Stable tiny calcified granuloma left lower lobe. Lungs are clear. There is no pneumothorax. No pleural effusion is appreciated. No acute bone abnormality. IMPRESSION: No acute cardiopulmonary process. Electronically signed by: Markell De Leon MD (11/05/2017 3:29 AM) [facility]
[2017-11-05 03:35] LABS: BILIRUBIN,URINE NEGATIVE (NEG); CLARITY,URINE CLEAR; COLOR,URINE YELLOW; NITRITE,URINE NEGATIVE (NEG); PROTEIN,URINE 100 mg/dL (NEG-TRACE)
[2017-11-05 03:40] LABS: BARBITURATES NEG (NEG); BENZODIAZEPINES NEG (NEG); CANNABINOIDS POS (NEG); COCAINE POS (NEG); METHADONE NEG (NEG); OPIATES POS (NEG); PHENCYCLIDINE NEG (NEG)
[2017-11-05 03:53] LABS: BACTERIA,URINE FEW /HPF (0-FEW); GRANULAR CASTS,URINE FEW /HPF; HYALINE CASTS, URINE MANY /HPF; RBC,URINE TNTC /HPF (0-2); SQUAMOUS EPITHELIAL CELL,UR FEW /LPF
[2017-11-05 04:04] LABS: AMPHETAMINE/METHAMPHETAMINE POS (NEG)
--- NOTE | 2017-11-05 06:16 | EKG ---
[facility] [address] [place] [address] Test Date: 2017-11-05 Test Time: 02:21:03 Pat Name: SARITHA HOLCOMB Department: Room: Gender: M Surtass Analyst: ANDREAS : 1990 Requested By: LOU HUITRON Order Number: [id number] Reading MD: Jarek Stuart Measurements Intervals [place] Rate: 104 P: 58 VA: 158 QRS: 89 QRSD: 102 T: 36 QT: 320 QTc: 427 Interpretive Statements SINUS TACHYCARDIA Electronically Signed On 11-06-2017 13:11:40 CDT by Jarek Stuart
== END 2017-11-05 03:30 | disposition left against medical advice (07) ==
LOC: ER 02:05
DX: R06.00 Dyspnea, unspecified (principal); R20.0 Anesthesia of skin; F19.10 Other psychoactive substance abuse, uncomplicated; K21.9 Gastro-esophageal reflux disease without esophagitis; I10 Essential (primary) hypertension; F17.210 Nicotine dependence, cigarettes, uncomplicated; F14.10 Cocaine abuse, uncomplicated; F12.10 Cannabis abuse, uncomplicated
CPT/HCPCS: 36415; 36600; 71045; 80053; 80307; 81001; 82553; 82805; 83690; 83735; 83880; 84484; 85025; 85379; 87086; 93005; 96361; 96374; 96375; 99285; J2060; J2405; J7030; G0479